=== PATIENT | female | born 1985 | race Caucasian/White ===

== ENCOUNTER 2017-08-29 13:16 | Emergency (ER) | payer MEDICAID, SELFPAY ==
[2017-08-29 13:19] VITALS: BP 146/90; PULSE 109; RESP 22; TEMP 36.6; O2SAT 98; BMI 26.2
[2017-08-29 13:23] VITALS: PULSE 101
--- NOTE | 2017-08-29 14:11 | EKG12_ITS ---
Test Reason : CP Blood Pressure : / mmHG Vent. Rate : 103 BPM Atrial Rate : 103 BPM P-R Int : 124 ms QRS Dur : 074 ms QT Int : 310 ms P-R-T Axes : 047 090 058 degrees QTc Int : 406 ms Sinus tachycardia Nonspecific ST abnormality Abnormal ECG Confirmed by ANDREI BERMEO ([id number]), city editor RHIANNA CABRERA ([id number] on 09/03/2017 2:45:31 PM Referred By: CLARISSA Confirmed By:ANDREI BERMEO
--- NOTE | 2017-08-29 14:14 | RAD_ITS ---
STUDY: X-RAY CHEST REASON FOR EXAM: Female, 31 years old. Chest pain. TECHNIQUE: Single AP portable view of the chest. COMPARISON: None. FINDINGS: EKG electrodes are seen. The lungs are clear and expanded. Scattered calcified granulomas. There is no demonstrated pleural abnormality. Normal size heart. Normal mediastinum and bertrand. Normal visualized pulmonary arteries. Normal visualized aortic arch and descending thoracic aorta. Normal visualized thoracic spine. Normal visualized ribs, clavicles, and shoulders. There is no demonstrated abnormality of the visualized soft tissue structures of the upper abdomen. RAD/Chest 1 View (Portable) IMPRESSION: Normal x-ray examination of the chest. Electronically Signed: Kvng Gaston MD at 14:55 EDT Tel [phone], Service support ,
[2017-08-29] MEDS: LORazepam 1 MG Tablet PO (14:25)
[2017-08-29] MEDS: 0.9% Normal Saline 1,000 ML 1000 ML IV (14:26)
[2017-08-29 14:27] LABS: Absolute Lymphocyte Count 1.75 X10^3/ul (0.83-4.51); Absolute Neutrophil Count 12.4 X10^3/uL (2.0-7.7); Basophil# 0.03 X10^3/uL; Basophil% 0.2 % (0-1); Eosinophil# 0.01 X10^3/uL; Eosinophils% 0.1 % (0-5); Hematocrit 46.3 % (37-47); Hemoglobin 16.5 g/dl (12.0-15.0); Lymphocyte # 1.75 X10^3/ul (4.0); Lymphocyte % 11.8 % (19-41); Mean Corp Hgb Conc 35.6 g/gl (32-36); Mean Corpuscular Hgb 35.7 pg (27.0-32.0); Mean Corpuscular Volume 100.2 fL (81-99); Mean Platelet Vol. 10.1 fl (6.2-12.0); Monocyte# 0.63 X10^3/uL; Monocyte% 4.3 % (0-10); Neutrophil # 12.36 X10^3/uL (2.7-7.7); Neutrophil % 83.4 % (47-70); Platelet Count 188 K/mm3 (150-450); RBC Distribution Width CV 13.5 % (11.6-14.6); RBC Distribution Width SD 49.4 fl (35.1-43.9); Red Blood Count 4.62 M/mm3 (4.2-5.4); White Blood Count 14.8 K/mm3 (4.4-11.0)
[2017-08-29 14:28] VITALS: O2SAT 97
[2017-08-29 14:30] LABS: POSITIVE COUNT NO; POSITIVE DIFFERENTIAL NO; POSITIVE MORPHOLOGY NO
[2017-08-29 14:49] LABS: D-Dimer Quantitative (DVT/PE) < 0.27 FEU/ug/m (0.27-0.49)
[2017-08-29 14:52] LABS: Anion Gap 7 (5-15); BUN 3 mg/dL (7-18); BUN/Creat Ratio 3.4 RATIO (10-20); Calcium,Total 9.3 mg/dL (8.5-10.1); Chloride 106 mmol/L (98-107); Creatinine, Serum 0.89 mg/dL (0.55-1.02); EST Glomerular Filtration Rate 78 mL/min (>60); Est Glom Filt Rate - Afr Amer 94 mL/min (>60); Estimated Creatinine Clearance 72.44 ml/min; Glucose 94 mg/dL (74-106); Sodium Level 138 mmol/L (136-145); Thyroid Stim Hormone (TSH) 0.45 uIU/mL (0.358-3.74)
[2017-08-29 14:56] LABS: Pregnancy, Serum, hCG Quali. NEGATIVE Negative (0-9 Nonpreg)
--- NOTE | 2017-08-29 15:13 | ED.DCSUM_ITS ---
- ER Visit Summary Date of Service: 08/29/17 Chief Complaint: Chest pain and shortness of breath History of Present Illness: The patient is a [address] Pickett. She reports that approximately 1130 this morning while in an argument with her significant other had the onset of a substernal chest pressure. It is been constant since that time. 7-10 hours and 3-10 currently. Is worsened by nothing including exertion or breathing. Is also relieved by nothing. She does report that she is short of breath with this. She denies any nausea, vomiting, or diaphoresis. Patient does report she has a family history of coronary disease in her mother less than 55. No personal or family history of DVT. No recent travel. No ankle swelling or calf pain. Physical Examination: Vitals: Stable. Afebrile. General: Well-nourished and well-developed. Head: Normocephalic atraumatic. Neck: Supple, no lymphadenopathy. No JVD. Nontender. Cardiovascular: Regular rate and rhythm. No murmurs. Respiratory: No respiratory distress. Clear to auscultation bilaterally. Abdominal: Soft, nontender, nondistended, normal bowel sounds. No guarding, rebound, or peritoneal signs. Back: Nontender. Extremities: Nontender, no edema. Skin: Normal color, no rash. Neurologic: Alert and oriented ?3. Cranial nerves II through XII are intact. Normal strength and sensation. Psych: Normal affect. Test Results: EKG is sinus tach at [address] changes. Troponin is negative. D-dimer is negative. test negative. Chem-7 is more for BUN of 3. CBC is marked for white count of 14.8 with a 3 segmented neutrophils and 12 lymphocytes. Hemoglobin is 16.5. Chest x-ray is normal. Emergency Department Course and Treatment: Patient was treated a milligram of Ativan p.o. She is resting comfortably. She feels well and would like to go home. Treatment Plan: Patient will be discharged instructions to follow-up her primary care physician in 3-5 days not improving. She will be given a prescription for 10 Ativan for use sparingly for panic attacks. Disposition: To home in improved and stable condition. Impression: 1. Anxiety. 2. Atypical chest pain. This note was generated with [employer] software. It may contain incorrect words, spelling, and punctuation that were not noted in review of the chart prior to signing ED Disposition - Plan for ED Patient: Disposition: Home or Assisted Living Chief Complaint: Chest Pain Instructions: ED Panic Attack Prescriptions: Lorazepam [Ativan] 0.5 mg PO TID PRN #10 tablet PRN Reason: Anxiety Referrals: Jerome Pickett MD [Primary Care Provider] - As Needed
[2017-08-29 15:16] VITALS: BP 121/70
[2017-08-29 15:25] VITALS: BP 121/75; PULSE 80; RESP 16; O2SAT 100
== END 2017-08-29 15:26 | disposition home or self-care (01) ==
LOC: ED 14:31
PROVIDERS: Emergency Provider Emergency Medicine; Family Provider Family Medicine; PCP Family Medicine
DX: R07.89 Other chest pain (principal); F41.9 Anxiety disorder, unspecified; Z72.0 Tobacco use
CPT/HCPCS: 71045; 80048; 84443; 84484; 84703; 85025; 85379; 93005; 99284